=== PATIENT | female | born 1960 | race Caucasian/White ===

== ENCOUNTER 2019-04-13 08:49 | Day surgery (SDC) | payer BC ==
[~2019-04-13 08:49] MED LIST: Lactated Ringers 1,000 ML IV SCH; Lidocaine 1%/Sod Bicarbonate in NS 8.4% 1 ML Syringe IDERM PRN; Sodium Chloride 0.9% 10 ML Syringe FLUSH PRN
--- NOTE | 2019-04-13 09:26 | PCM.PREANE ---
Preanesthetic Assessment - Procedure Proposed Procedure: Screening Colonoscopy - Anesthesia/Transfusion/Family Hx Anesthesia History: Prior Anesthesia Reaction Type of Anesthesia Reaction: Excessive Nausea/Vomiting (With abdominal surgery, knee scope done without nausea, medication throught her IV worked well. ) Family History of Anesthesia Reaction: No - Review of Systems General: No Symptoms Pulmonary: No Symptoms, Other (Childhood asthma. Last time inhaler was needed was 1-2 years ago when she had pneumonia. ) Cardiovascular: No Symptoms, Other (Walks 2 miles a day. ) Gastrointestinal: No Symptoms Neurological: No Symptoms Other: Reports: None - Physical Assessment NPO Status Date: 04/13/19 NPO Status Time: 04:00 Vital Signs: Last Vital Signs Temp 36.7 C 04/13/19 08:55 Pulse 79 04/13/19 08:55 Resp 16 04/13/19 08:55 BP 115/78 04/13/19 08:55 Pulse Ox 100 04/13/19 08:55 Height: 1.68 m Weight: 58.06 kg ASA Class: 1 Mental Status: Alert & Oriented x3 Airway Class: Mallampati = 1 Dentition: Reports: Normal Dentition Thyro-Mental Finger Breadths: 2 Mouth Opening Finger Breadths: 2 ROM/Head Extension: Full Lungs: Clear to Auscultation, Normal Respiratory Effort Cardiovascular: Regular Rate, Regular Rhythm - Allergies Allergies/Adverse Reactions: Allergies Allergy/AdvReac Type Severity Reaction Status Date / Time cephalexin [From Keflex] Allergy Airway Verified 04/12/19 15:52 Tightness Penicillins Allergy Airway Verified 04/12/19 15:52 Tightness Sulfa (Sulfonamide Allergy Airway Verified 04/12/19 15:52 Antibiotics) Tightness tetracycline Allergy Airway Verified 04/12/19 15:52 Tightness - Acknowledgements Anesthesia Type Planned: MAC Pt an Appropriate Candidate for the Planned Anesthesia: Yes Alternatives and Risks of Anesthesia Discussed w Pt/Guardian: Yes Pt/Guardian Understands and Agrees with Anesthesia Plan: Yes PreAnesthesia Questionnaire HEENT History: Reports: Allergic Rhinitis, Impaired Vision Cardiovascular History: Reports: None Respiratory History: Reports: Asthma Gastrointestinal History: Reports: None Genitourinary History: Reports: Renal Calculus, Other (See Below) Other Genitourinary History: dysuria [employer] History: Reports: Other (See Below) Other OB/BYN History: vaginal dryness Musculoskeletal History: Reports: RA, Other (See Below) Other Musculoskeletal History: left bunion, hamstring injury Neurological History: Reports: None Psychiatric History: Reports: Addiction, Other (See Below) Other Psychiatric History: ETOH abx Endocrine/Metabolic History: Reports: None Hematologic History: Reports: None Immunologic History: Reports: None Oncologic (Cancer) History: Reports: None Dermatologic History: Reports: Other (See Below) Other Dermatologic History: skin nevus, skin lesions - Past Surgical History Head Surgeries/Procedures: Reports: None HEENT Surgical History: Reports: Cataract Surgery, Tonsillectomy Cardiovascular Surgical History: Reports: None Respiratory Surgical History: Reports: None GI Surgical History: Reports: Appendectomy Female Surgical History: Reports: Hysterectomy, Oophorectomy Endocrine Surgical History: Reports: None Neurological Surgical History: Reports: None Musculoskeletal Surgical History: Reports: Arthroscopic Knee Oncologic Surgical History: Reports: None - SUBSTANCE USE Smoking Status *Q: Former Smoker Recreational Drug Use History: No - HOME MEDS Home Medications: Home Meds . [No Known Home Meds] 04/12/19 [History] - CURRENT (IN HOUSE) MEDS Current Meds: Current Medications Lactated Ringer's (Ringers, Lactated) 1,000 mls @ 125 mls/hr IV ASDIRECTED JASSON Stop: 04/13/19 23:00 Last Admin: 04/13/19 09:10 Dose: 125 mls/hr Lidocaine/Sodium Bicarbonate (Buffered Lidocaine 1% In Ns 8.4%) 0.25 ml IDERM ONETIME PRN PRN Reason: Prior to IV Start Stop: 04/13/19 18:00 Last Admin: 04/13/19 09:10 Dose: 0.25 ml Sodium Chloride (Saline Flush) 10 ml FLUSH ASDIRECTED PRN PRN Reason: Keep Vein Open Stop: 04/13/19 18:00
[2019-04-13] MEDS ORDERED: Propofol 200 MG/20 ML SDV ONE ×2 (10:27→11:06)
[2019-04-13] MEDS ORDERED: Lidocaine 1% 4 ML ONE (10:27)
[2019-04-13] MEDS ORDERED: fentaNYL 100 MCG/2 ML SDV ONE (10:28)
[2019-04-13] MEDS ORDERED: Midazolam 1 MG/ML 2 ML SDV ONE (10:41)
[2019-04-13] MEDS ORDERED: Ondansetron 4 MG/2 ML SDV ONE (11:00)
--- NOTE | 2019-04-13 11:29 | PCM.PRNOTE ---
- Free Text/Narrative Note: Date: 04/13/2019 Procedure: screening colonoscopy Endoscopist: Paulo Herrera MD Findings: Ileocecal valve visualized. Prep was very good Detailed Report: The patient was taken to the endoscopy suite and placed in left lateral decubitus position. Time out was performed and monitored anesthesia care was initiated. The anus appeared normal. Digital rectal exam was unremarkable. The lubricated colonoscope was then inserted and advanced all the way to the cecum. The colon was redundant, making navigation quite challenging, most especially the sigmoid colon. The ileocecal valve was visualized. The prep was noted to be very good, with a few areas containing particulate food. On slow withdrawal of the scope, mucosal surfaces were carefully inspected. No polyps, diverticuli or hemorrhoids were appreciated. The patient tolerated the procedure well. Paulo Herrera MD General Surgery
--- NOTE | 2019-04-13 12:12 | PCM48HPAN ---
Post Anesthesia Note - EVALUATION WITHIN 48HRS OF ANESTHETIC Vital Signs in Normal Range: Yes Patient Participated in Evaluation: Yes Respiratory Function Stable: Yes Airway Patent: Yes Cardiovascular Function Stable: Yes Hydration Status Stable: Yes Pain Control Satisfactory: Yes Nausea and Vomiting Control Satisfactory: Yes Mental Status Recovered: Yes Vital Signs: Last Vital Signs Temp 97.2 F 04/13/19 11:28 Pulse 69 04/13/19 11:56 Resp 16 04/13/19 11:56 BP 102/64 04/13/19 11:56 Pulse Ox 100 04/13/19 11:56
== END 2019-04-13 12:30 | disposition home or self-care (01) ==
LOC: JD.SDS 08:49
PROVIDERS: ATTEND Surgery
DX: Z12.11 Encounter for screening for malignant neoplasm of colon (principal); Q43.8 Other specified congenital malformations of intestine; J45.909 Unspecified asthma, uncomplicated; M06.9 Rheumatoid arthritis, unspecified; Z87.891 Personal history of nicotine dependence; Z88.1 Allergy status to other antibiotic agents; Z88.0 Allergy status to penicillin; Z88.2 Allergy status to sulfonamides; Z80.0 Family history of malignant neoplasm of digestive organs; Z83.71 Family history of colonic polyps
CPT/HCPCS: 45378; J2001; J2250; J2405; J2704; J3010; J7120